=== PATIENT | female | born 1995 | race Caucasian/White ===

== ENCOUNTER 2020-10-03 17:28 | Emergency (ER) | payer OTHER, SELFPAY ==
--- NOTE | 2020-10-03 17:30 | ED.FEMALEGU ---
HPI - Female Genitourinary General Chief complaint: Urogenital-Female Stated complaint: POS UTI Time Seen by Provider: 10/03/20 17:31 Source: patient and RN notes reviewed History of Present Illness HPI Narrative: Patient is a 24-year-old female who presents the urgent care with complaints of a possible UTI. Patient states her symptoms started late last night with increased frequency, urgency, dysuria and the feeling of not emptying her bladder. Patient states she also has an odor to the urine. Patient states that she used to get UTIs frequently with her cycle in high school and does continue to get them intermittently now. Patient states her last antibiotic was in July however she had a yeast infection rather than a UTI. Patient did take 1 full week of Macrobid and 1 dose of Diflucan at that time. Patient currently denies of any blood in the urine, fever, nausea, vomiting, abdominal pain. No other acute complaints. No acute distress noted. Patient aware of the plan of care. Some parts of this dictation were generated by voice recognition software and may contain typographical and/or grammatical inaccuracies. Related Data Home Medications Medication Instructions Recorded Confirmed cetirizine [Zyrtec] 10 mg PO DAILY 10/03/20 10/03/20 norethindrone-ethin estradiol tablet 10/03/20 [Trace (28)] Allergies Allergy/AdvReac Type Severity Reaction Status Date / Time No Known Allergies Allergy Unknown Verified 06/17/20 08:35 Review of Systems Review of Systems: Narrative: CONSTITUTIONAL: Denies fever, chills, or sweats. EYES: Denies visual changes, redness, or discharge. ENT: Denies rhinorrhea, congestion, sore throat, or otalgia. CARDIOVASCULAR: Denies chest pain, palpitations, or edema. RESPIRATORY: Denies cough or dyspnea. GASTROINTESTINAL: Denies abdominal pain, nausea, vomiting, or diarrhea. GENITOURINARY: Reports of dysuria, urgency, frequency, odor of the urine SKIN: Denies rash or itching. MUSCULOSKELETAL: Denies back pain, joint pain, or myalgia. NEUROLOGIC: Denies headache, numbness, or weakness. All other systems reviewed are negative, except as documented in HPI. [facility]LY [facility] Social History Social History Smoking status: Never smoker Alcohol intake: never Comments At the time of my signature, I reviewed and agree with the nursing past medical, surgical, social, and family history. There is no relevant family history pertinent to the patient complaint. Exam Narrative: Exam Narrative: GENERAL: This is a well-nourished, well-developed patient, in no apparent distress. HEAD: normocephalic, atraumatic. EYES: PERRL. Sclera clear/white. Vision is grossly intact. EARS: External ears normal NOSE: External nose normal with no obvious nasal discharge, nares without redness, no rhinorrhea. THROAT: Mucous membranes moist NECK: Neck supple GASTROINTESTINAL: Abdomen soft, non-tender, nondistended. SKIN: warm, intact with no suspicious lesions or rash, good texture and turgor. NEURO: awake, alert, and oriented to person, place and time. There were no obvious focal neurologic abnormalities. EXTREMITIES: No clubbing, cyanosis, or edema. BACK: Negative bilateral CVA tenderness Course Vital Signs Vital signs: Vital Signs Temperature 97.5 F L 10/03/20 17:38 Pulse Rate 101 H 10/03/20 17:38 Respiratory Rate 16 10/03/20 17:38 Blood Pressure 152/93 H 10/03/20 17:38 Pulse Oximetry 100 10/03/20 17:38 Temperature 97.5 F L 10/03/20 17:38 Pulse Rate 101 H 10/03/20 17:38 Respiratory Rate 16 10/03/20 17:38 Blood Pressure 152/93 H 10/03/20 17:38 Pulse Oximetry 100 10/03/20 17:38 Reviewed-patient is informed that they may have pre-hypertension or hypertension based on a blood pressure reading in the department. I recommend the patient call the primary care provider listed on their discharge instructions or a physician of their choice this
[2020-10-03 17:38] VITALS: BP 152/93; PULSE 101; RESP 16; TEMP 36.4; O2SAT 100
== END 2020-10-03 17:54 | disposition home or self-care (01) ==
PROVIDERS: Emergency Provider Nurse Practitioner Family; PCP Family Medicine
DX: N39.0 Urinary tract infection, site not specified (principal)
CPT/HCPCS: 81003; 87077; 87086; 87088; 87186; 99213; G0463

== ENCOUNTER 2025-06-05 11:39 | Emergency (ER) | payer BC, SELFPAY ==
--- NOTE | ~2025-06-05 | CT_ITS ---
EXAMINATION: CTA chest PE protocol DATE: 06/05/2025 14:27 INDICATION: Chest pain. Shortness of breath. TECHNIQUE: Computed tomography angiography (CTA) of the chest was performed with 100 mL Omnipaque-350 intravenous contrast timed to evaluate the pulmonary arteries. Coronal maximum intensity projection 3D-reconstructions were created by the technologist. Automated exposure control and iterative reconstruction technique were employed. The dose-length product was 329.60 mGy-cm. COMPARISON: None. FINDINGS: There is mild scarring at the lung apices. There is mild atelectasis bilaterally. There are trace bilateral pleural effusions. The heart size is normal. No pericardial effusion. There is no pulmonary embolus. There is mild thoracic spondylosis. IMPRESSION: 1. No pulmonary embolus. Sensitivity is mildly decreased by motion artifact. Reviewed, dictated and finalized at location E.
--- NOTE | ~2025-06-05 | XR_ITS ---
Examination: XR chest 2V Clinical History: left arm pain and numbness Comparison: None Technique: PA and Lateral Findings: Cardiomediastinal silhouette normal size and configuration. Lungs clear. No acute bony abnormality. IMPRESSION: 1. No acute cardiopulmonary findings. Reviewed, dictated and finalized at location R.
--- NOTE | 2025-06-05 11:43 | ECG_ITS ---
Test Date: 2025-06-05 11:51:04 Measurements Intervals [place] Rate: 103 P: 37 NC: 128 QRS: 38 QRSD: 76 T: 40 QT: 357 QTc: 469 Interpretive Statements SINUS TACHYCARDIA NONSPECIFIC ST ABNORMALITY ABNORMAL ECG No previous ECG available for comparison Electronically Signed On 06-05-2025 13:09:15 CDT by Saurav Javed M.D.
[2025-06-05 11:46] VITALS: BP 153/89; PULSE 116; RESP 18; TEMP 36.4; O2SAT 100
[2025-06-05 12:08] LABS: Hematocrit 37.1 % (37.0-47.0); Hemoglobin 11.0 g/dL (12.0-15.0); Immature Granulocyte Percent A 0.4 % (0-0.5); Immature Platelet Fraction Pct 6.4 % (0.9-11.2); Lymphocytes Absolute Auto 4.36 K/mm3 (0.9-3.2); Mean Corpuscular HGB Conc 29.6 g/dl (32-36); Mean Corpuscular Hemoglobin 18.5 pg (26-34); Mean Corpuscular Volume 62.6 fl (80-100); Nucleated Red Blood Cells Absolute Auto 0.000 K/mm3 (0.0-0.012); Nucleated Red Blood Cells Perc 0.0 % (0.0-0.2); Platelet Count Result 240 k/mm3 (150-375); Red Blood Count 5.93 M/mm3 (4.2-5.4); White Blood Count 9.9 K/mm3 (4.5-10.0)
[2025-06-05 12:20] LABS: INR 1.0; Prothrombin Time 13.3 Seconds (11.1-14.7)
[2025-06-05 12:22] LABS: Partial Thromboplastin Time 28.3 Seconds (22.3-36.8)
[2025-06-05 12:46] LABS: Alanine Aminotransferase 20 U/L (6-35); Albumin Level 4.9 g/dL (3.5-5.1); Alkaline Phosphatase 90 U/L (38-126); Anion Gap 12 mmol/L (4-12); Aspartate Amino Transferase 33 U/L (14-36); Bilirubin,Total 1.0 mg/dL (0.2-1.3); Blood Urea Nitrogen 10 mg/dL (7-17); Calcium 9.2 mg/dL (8.4-10.2); Carbon Dioxide 21 mmol/L (22-30); Chloride 104 mmol/L (98-107); Estimated CRCL calculation 122 ml/min; Estimated Glomerular Filt Rate > 60; Glucose 94 mg/dL (65-110); Lipase 100 U/L (23-300); Potassium 3.7 mmol/L (3.4-5.0); Sodium 137 mmol/L (137-145); Total Protein 8.6 g/dL (6.3-8.2); Troponin I < 0.012 ng/mL (0.000-0.034)
[2025-06-05 12:53] LABS: Schistocytes None Seen
[2025-06-05 12:54] LABS: Anisocytosis 1+; Hypochromasia 1+; Ovalocytes Occasional; Tear Drop Cells Occasional
[2025-06-05 12:56] LABS: Polychromasia Occasional
[2025-06-05] MEDS: SODIUM CHLORIDE 0.9% IV 1,000 ML 999 ML IV CONT (14:16)
[2025-06-05 14:17] LABS: BEDSIDEPREGUCG Negative (Negative)
--- NOTE | 2025-06-05 14:47 | ECG_ITS ---
Test Date: 2025-06-05 15:47:57 Measurements Intervals [place] Rate: 125 P: 55 AL: 156 QRS: 45 QRSD: 86 T: 36 QT: 336 QTc: 485 Interpretive Statements SINUS TACHYCARDIA NONSPECIFIC T-WAVE ABNORMALITY ABNORMAL ECG Compared to ECG 06/05/2025 11:51:04 T-wave abnormality now present ST (T wave) deviation no longer present Electronically Signed On 06-05-2025 16:52:53 CDT by Saurav Javed M.D.
[2025-06-05 14:57] LABS: Thyroid Stimulating Hormone Reflex 3.940 uIU/mL (0.465-4.68)
[2025-06-05 15:44] LABS: Troponin I < 0.012 ng/mL (0.000-0.034)
--- NOTE | 2025-06-05 16:26 | ED.CHESTPAIN ---
HPI - Chest Pain General Chief Complaint: Chest Pain Stated Complaint: left arm pain, palpitations Time Seen by Provider: 06/05/25 12:50 History of Present Illness HPI narrative: Patient is a 29-year-old female who presents ER with left arm pain at the elbow going to the hand felt tingling. This occurred 30 minutes prior to arrival. He was associated with her watch telling her that her heart rate was 160 beats per minute. 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 She saw an assembler gold frame in [place]. She recently moved here. She is not on any rate control medications. No fevers or chills or sweats. She remains tachycardic in the low 100s to 120s. No dyspnea. She is not on any control. No hemoptysis. Related Data Home Medications ?Medication ?Instructions ?Recorded ?Confirmed ?Last Taken ?Type cetirizine 10 mg tablet (Zyrtec) 10 mg PO DAILY 10/03/20 10/03/20 Unknown History norethindrone 0.4 mg-ethinyl tablet 10/03/20 Unknown History estradiol 35 mcg tablet (Balziva (28)) Allergies Allergy/AdvReac Type Severity Reaction Status Date / Time No Known Allergies Allergy Unknown Verified 06/05/25 14:00 Review of Systems Review of Systems: All systems reviewed & are unremarkable except as noted in HPI and below Constitutional: Constitutional: Reports no additional constitutional complaints ENT: Reports system reviewed and no additional complaints, except as documented Cardiovascular: Cardiovascular: Reports no additional cardiovascular complaints Respiratory: Respiratory: Reports no additional respiratory complaints Musculoskeletal: Musculoskeletal: Reports no additional musculoskeletal complaints FOR[facility]LY [facility] Past Medical History Medical History (Updated 06/05/25 @ 17:32 by Choco Whitehead MD) AVNRT (AV steve re-entry tachycardia) Surgical History Surgical History (Updated 06/05/25 @ 16:27 by Choco Whitehead MD) H/O cardiac radiofrequency ablation Social History Social History Smoking status: Never smoker Alcohol intake: never Exam Narrative: GENERAL: Well-appearing, well-nourished, and in no acute distress. HEAD: Normocephalic, atraumatic. ENT: Mucous membranes moist. CHEST: Clear to auscultation. No respiratory distress. HEART: Tachycardic and regular. Normal peripheral pulses. ABDOMEN: Soft, nontender, nondistended. EXTREMITIES: Normal range of motion. No edema. SKIN: Warm, dry, no rash. NEURO: Alert and oriented x3. PSYCH: Normal mood and affect. Course Course Emergency Course: Informed patient and family of lab and imaging results. Discussed case with Dr. Ewing. Will start on metoprolol succinate 25 mg, 1st dose here, can start the rest medication trial morning. Follow up outpatient. Vital Signs Vital signs: Vital Signs Temperature 97.6 F 06/05/25 11:46 Pulse Rate 116 H 06/05/25 11:46 Respiratory Rate 18 06/05/25 11:46 Blood Pressure 153/89 H 06/05/25 11:46 Pulse Oximetry 100 06/05/25 11:46 Oxygen Delivery Room Air 06/05/25 11:46 Temperature 97.6 F 06/05/25 11:46 Pulse Rate 116 H 06/05/25 11:46 Respiratory Rate 18 06/05/25 11:46 Blood Pressure 153/89 H 06/05/25 11:46 Pulse Oximetry 100 06/05/25 11:46 Oxygen Delivery Room Air 06/05/25 11:46 MDM - Chest Pain Lab Data 06/05/25 11:59 06/05/25 11:59 Labs: Lab Results 06/05/25 06/05/25 06/05/25 Range/Units 11:59 14:15 15:15 WBC 9.9 (4.5-10.0) K/mm3 RBC 5.93 H (4.2-5.4) M/mm3 Hgb 11.0 L (12.0-15.0) g/dL Hct 37.1 (37.0-47.0) % MCV 62.6 L (80-100) fl MCH 18.5 L (26-34) pg MCHC 29.6 L (32-36) g/dl RDW 18.5 H (11.5-14.5) % Plt Count 240 (150-375) k/mm3 MPV TNP Immature Gran % (Auto) 0.4 (0-0.5) % Neut % (Auto) 48.2 (45.5-73.1) % Lymph % (Auto) 44.0 (18.3-44.2) % [place] % (Auto) 5.7 (2.6-8.5) % Eos % (Auto) 1.4 (0-4.4) % Baso % (Auto) 0.3 (0.2-1.2) % Lymph # (Auto) 4.36 H (0.9-3.2) K/mm3 [place] # (Auto) 0.6 (0.1-0.6) K/mm3 Eos # (Auto) 0.1 (0-0.3) K/mm3 Baso # (Auto) 0.0 (0.0-0.1) K/mm3 Abs Immat Gran (auto) 0.04 H (0.00-0.031) K/mm3 Absolute Neuts (auto) 4.8 (1.3-6.7) K/mm3 Absolute Nucleated RBC 0.000 (0.0-0.012) K/mm3 Band Neutrophils % Not Reportable Nucleated RBC % 0.0 (0.0-0.2) % Platelet Estimate Adequate (Adequate) % Immature Plt Fraction 6.4 (0.9-11.2) % Polychromasia Occasional Hypochromasia 1+ Anisocytosis 1+ Tear Drop Cells Occasional Ovalocytes Occasional Schistocytes None seen PT 13.3 (11.1-14.7) Seconds INR 1.0 APTT 28.3 (22.3-36.8) Seconds Sodium 137 (137-145) mmol/L Potassium 3.7 (3.4-5.0) mmol/L Chloride 104 (98-107) mmol/L Carbon Dioxide 21 L (22-30) mmol/L Anion Gap 12 (4-12) mmol/L BUN 10 (7-17) mg/dL Creatinine 0.67 L (0.7-1.0) mg/dL Estim Creat Clear Calc 122 ml/min Estimated GFR > 60 (59 - ) Glucose 94 (65-110) mg/dL Calcium 9.2 (8.4-10.2) mg/dL Total Bilirubin 1.0 (0.2-1.3) mg/dL AST 33 (14-36) U/L ALT 20 (6-35) U/L Alkaline Phosphatase 90 (38-126) U/L Troponin I < 0.012 < 0.012 (0.000-0.034) ng/mL Total Protein 8.6 H (6.3-8.2) g/dL Albumin 4.9 (3.5-5.1) g/dL Lipase 100 (23-300) U/L TSH (Reflex) 3.940 (0.465-4.68) uIU/mL POC Urine HCG, Qual Negative (Negative) Imaging Data Radiologist's impression: ITS Impressions Chest X-Ray 06/05/25 12:25 IMPRESSION: 1. No acute cardiopulmonary findings. Chest CTA 06/05/25 14:35 IMPRESSION: 1. No pulmonary embolus. Sensitivity is mildly decreased by motion artifact. ECG Data EKG #1: ECG completion date: 06/05/25 ECG completion time: 11:51 EKG Interpretation: tachycardia (103), sinus rhythm, non-specific ST changes, normal QRS, normal QT and NL axis EKG #2: ECG completion date: 06/05/25 ECG completion time: 15:47 EKG Interpretation: tachycardia (125), sinus rhythm, non-specific ST changes, normal QRS and NL axis Discharge Plan Discharge Clinical Impression: Sinus tachycardia, Palpitations Patient Disposition: Home Condition: Stable Instructions: Tachycardia (ED) Additional Instructions: Please return to the emergency department if you develop severe and persistent chest pain, difficulty breathing, dizziness, leg swelling or if you are coughing up blood as these can be signs of a medical emergency. Please call your doctor for a follow up appointment to determine the need for further testing. Patient Language: Nigerien Prescriptions: New metoprolol succinate 25 mg tablet extended release 24 hr 25 mg PO DAILY Qty: 14 0RF No Action cetirizine [Zyrtec] 10 mg Tablet 10 mg PO DAILY Balziva (28) 0.4-35 mg-mcg tablet [place] 5 mg tablet 5 mg PO BID Qty: 1 0RF Rx Instructions: managed by cardiology. Follow-up/Referrals: Jerry Ewing DO [Physician, Cardiology] - 1 Week PHYSICIAN,RETAIL ASSISTANT STORE MANAGER [Primary Care Provider, Internal Medicine]
[2025-06-05 17:46] VITALS: PULSE 101
[2025-06-05] MEDS: METOPROLOL SUCCINATE EXT REL 25 MG TABCR PO (17:46)
== END 2025-06-05 17:55 | disposition home or self-care (01) ==
PROVIDERS: Emergency Provider Emergency Medicine
DX: R00.0 Tachycardia, unspecified (principal); R00.2 Palpitations
CPT/HCPCS: 36415; 71046; 71275; 80053; 81025; 83690; 84443; 84484; 85025; 85055; 85610; 85730; 93005; 96360; 99284; A9270; J7030; Q9967